=== PATIENT | female | born 1945 | race Caucasian/White ===

== ENCOUNTER 2018-10-07 14:33 | Emergency (ER) | payer MEDICARE, BC ==
[2018-10-07] MEDS: LORAZEPAM 2 MG INJ IV ×2 (14:50→15:59)
[2018-10-07] MEDS: SOD CHLORIDE 0.9% 1,000 ML IV (14:50)
[2018-10-07 15:04] LABS: ADD MAN DIFF? NO
[2018-10-07 15:08] LABS: BASOPHILS % 0.5 % (0.0-2.0); EOSINOPHILS # 0.1 10^3/ul (0.0-0.5); EOSINOPHILS % 2.2 % (0.0-7.0); HEMATOCRIT 39.8 % (37.0-47.0); HEMOGLOBIN 13.7 g/dl (12.0-16.0); LYMPHOCYTES # 1.5 10^3/ul (0.8-2.9); MEAN CORPUSCULAR HEMOGLOBIN 31.6 pg (29.0-33.0); MEAN CORPUSCULAR HGB CONC 34.4 g/dl (32.0-37.0); MEAN CORPUSCULAR VOLUME 91.7 fl (82.0-101.0); MEAN PLATELET VOLUME 10.2 fl (7.4-10.4); MONOCYTE # 0.9 10^3/ul (0.3-0.9); MONOCYTES % 16.5 % (0.0-11.0); NEUTROPHILS % 54.6 % (39.0-77.0); PLATELET COUNT 194 10^3/UL (140-415); RED BLOOD COUNT 4.34 10^6/ul (4.20-5.40); RED CELL DISTRIBUTION WIDTH 11.7 % (11.5-14.5)
[2018-10-07 15:08] LABS: WHITE BLOOD COUNT 5.6 10^3/ul (4.8-10.8)
[2018-10-07] MEDS: ADENOSINE 6 MG INJ IV ×3 (15:09→15:56)
[2018-10-07 15:25] LABS: ALANINE AMINOTRANSFERASE 35 IU/L (13-69); ALBUMIN 4.5 g/dl (3.3-4.9); ALBUMIN/GLOBULIN RATIO 1.95; ALKALINE PHOSPHATASE 90 IU/L (42-121); ANION GAP 11 (5-13); ASPARTATE AMINO TRANSFERASE 16 IU/L (15-46); BILIRUBIN,INDIRECT 0.3 mg/dl (0-1.1); BILIRUBIN,TOTAL 0.3 mg/dl (0.2-1.3); BLOOD UREA NITROGEN 16 mg/dl (7-20); CALCIUM 9.6 mg/dl (8.4-10.2); CARBON DIOXIDE 27 mmol/L (21-31); CHLORIDE 102 mmol/L (97-110); CREATINE KINASE 47 IU/L (23-200); GLUCOSE 99 mg/dl (70-220); POTASSIUM 4.4 mmol/L (3.5-5.1); SODIUM 140 mmol/L (135-144); TOTAL PROTEIN 6.8 g/dl (6.1-8.1)
[2018-10-07 15:28] LABS: INR 0.95; PROTIME 12.8 Sec (11.9-14.9)
[2018-10-07 15:29] LABS: PARTIAL THROMBOPLASTIN TIME 29.1 Sec (23.0-35.0)
[2018-10-07 15:37] LABS: B-TYPE NATRIURETIC PEPTIDE 264 PG/ML (0-125); CK INDEX 1.9; CK-MB 0.89 ng/ml (0.0-2.4); TROPONIN-I < 0.012 ng/ml (0.000-0.120)
[2018-10-07 15:43] LABS: FREE THYROXINE INDEX (Calc) 4.01 ug/ml (0.65-3.89); T3 UPTAKE 33.1 % (23.5-40.5); T4 (THYROXINE) 12.1 ug/dl (5.5-11.0)
[2018-10-07 16:24] LABS: THYROID STIMULATING HORMONE 0.455 MIU/L (0.465-4.680)
== END 2018-10-07 17:45 | disposition home or self-care (01) ==
LOC: E/R 14:33
DX: I47.1 Supraventricular tachycardia (principal); R07.9 Chest pain, unspecified
CPT/HCPCS: 71045; 80053; 82550; 82553; 83880; 84436; 84443; 84479; 84484; 85025; 85610; 85730; 93005; 96374; 96376; 99291-25